=== PATIENT | male | born 2000 | race Caucasian/White ===

== ENCOUNTER 2022-09-26 03:14 | Outpatient (CLI) | payer OTHER, SELFPAY ==
[2022-09-26] MEDS: Gadoterate meglumine 20 ML VIAL IVP (14:13)
[2022-09-26] MEDS: Normal Saline Flush 10 ML SYR IJ (14:15)
--- NOTE | 2022-09-26 14:45 | DI.MRI_ITS ---
Exam(s) MR UPPER EXTREMITY RT WO/W EXAM: MR UPPER EXTREMITY RT WO/W CLINICAL HISTORY: POSSIBLE OSTEOMYELITIS OF RT MIDDLE FINGER, PIP JOINT TECHNIQUE: Multiplanar multisequence MRI was performed. COMPARISON: No exams were available for comparison FINDINGS: MARROW/ARTICULATIONS: There is intraosseous edema and enhancement in the proximal and middle phalanges of 3rd-middle finger . There is also edema and enhancement in the proximal interphalangeal joint of the same 3rd finger a s well as osseous erosions on lateral aspect of this joint both in the lateral head of the proximal p halanx and lateral base of the middle phalanx and there is small amount of increased joint fluid. Fi ndings are suspicious for septic arthritis and osteomyelitis. TENDONS/MUSCLES: There is edema and enhancement around the extensor tendons of the adjacent 4th and 5 th fingers., probably indicating element of tendinitis/tenosynovitis. There are, however, no obvious tears of these tendons. No findings at the level of the 2nd-index finger. no findings in the thumb. No findings in the carp al tunnel flexor tendons. IMPRESSION: 1. Findings are suspicious for element of osseous destruction in the proximal interphalangeal joint o f the 3rd finger-secondary to septic arthritis. There is also intraosseous edema and enhancement wit hin significant portions of the proximal and middle phalanges of the 3rd finger, suspicious for osteo myelitis. 2. Edema dorsal to the 4th and 5th metacarpals involving the extensor tendons, suspicious for tendini tis/tenosynovitis. This may also be infectious, given the mechanism of injury here. DATA REPOSITORY:
--- NOTE | 2022-09-26 16:29 | DI.VRAD_ITS ---
PROCEDURE INFORMATION: Exam: MR Right Upper Extremity Other Than Joint Without and With Contrast; Fingers Exam date and time: 09/26/2022 1:47 PM Age: 22 years old Clinical indication: Injury or trauma; Other: Right hand injured; Injury details: Laceration to the right middle finger one month ago TECHNIQUE: Imaging protocol: Magnetic resonance imaging of the right upper extremity without and with contrast. Exam focused on the fingers. Contrast material: DOTAREM; Contrast volume: 17 ml; Contrast route: INTRAVENOUS (IV); COMPARISON: No relevant prior studies available. FINDINGS: Bones/joints: There is osseous erosion and edema noted throughout the mid to distal aspect of the proximal phalanx of the 3rd digit. There is destruction and edema at the adjacent proximal interphalangeal joint which also includes the base of the middle phalanx. A small joint effusion also noted. Collateral ligaments of digits: No evidence of tear. Flexor compartment tendons: No evidence of tear. Extensor compartment tendons: No evidence of tear. Edema noted within the subcutaneous tissues along the dorsal aspect of the 4th and 5th metacarpal bones involving the extensor tendons. Soft tissues: Soft tissue thickening is noted surrounding the proximal interphalangeal joint, suggestive of peripheral inflammation. IMPRESSION: 1. Osseous destruction at the proximal interphalangeal joint of the 3rd digit, concerning for posttraumatic arthrosis. Periarticular soft tissue thickening and joint effusion also noted, concerning for prominent inflammatory changes. No evidence of abscess formation, although any superimposed infection in this region may be excluded clinically. 2. Subcutaneous edema dorsal to the 4th and 5th metacarpal bones noted involving the extensor tendons, possibly tendinosis. No evidence of a tear. Dictated and Authenticated by: Isabelle Esteban MD. Ordering:MIKA Almaraz MD
== END 2022-09-26 03:34 ==
PROVIDERS: Visit Provider Nurse Practitioner Family
DX: R22.31 Localized swelling, mass and lump, right upper limb (principal); M86.141 Other acute osteomyelitis, right hand
CPT/HCPCS: 73220